=== PATIENT | male | born 1950 | race Caucasian/White ===

== ENCOUNTER 2024-04-17 05:38 | Day surgery (SDC) | payer MEDICARE ==
[2024-04-16 11:41] VITALS: BMI 28.4
[2024-04-17] MEDS ORDERED: SUGAMMADEX SODIUM 200 MG/2 ML VIAL ONE (06:26)
[2024-04-17] MEDS ORDERED: Dexmedetomidine 200 MCG/2 ML VIAL ONE (06:26)
[2024-04-17] MEDS ORDERED: Sevoflurane 250 ML INH ANEST BOTTLE ONE (06:26)
[2024-04-17] MEDS ORDERED: Oxymetazoline HCl 0.05% ( 15 ML ) ONE (06:28)
[2024-04-17] MEDS ORDERED: Chlorhexidine Gluconate 15 ML UDCUP SSP ONE (06:28)
[2024-04-17] MEDS ORDERED: Midazolam HCl 2 mg/2 ml Vial ONE (06:36)
[2024-04-17] MEDS ORDERED: Dexamethasone 20 MG/5 ML VIAL ONE (06:36)
[2024-04-17] MEDS ORDERED: Rocuronium Bromide 10 MG/ML (10ML VIAL) ONE (06:36)
[2024-04-17] MEDS ORDERED: fentaNYL 50 mcg/mL 1 mL Vial ONE ×3 (06:36→09:23)
[2024-04-17] MEDS ORDERED: Ondansetron PF 4 MG/2 ML Vial ONE (06:36)
[2024-04-17] MEDS ORDERED: Lidocaine 1% PF 5 ML VIAL ONE (06:36)
[2024-04-17] MEDS ORDERED: Glycopyrrolate 0.2 MG/ML 5 ML SYRINGE ONE (06:36)
[2024-04-17] MEDS ORDERED: PROPOFOL 20 ML ONE ×2 (06:36→08:23)
[2024-04-17] MEDS ORDERED: Clindamycin/D5W 900 mg/50 ml Premix Bag ONE (06:59)
[2024-04-17] MEDS ORDERED: ePHEDrine Sulfate 50 MG/10 ML VIAL ONE (07:22)
[2024-04-17] MEDS ORDERED: Lidocaine 1% (PF) 30 ML VIAL ONE (07:24)
[2024-04-17] MEDS ORDERED: Albuterol HFA (OR) 200 PUFF INH ONE (08:23)
[2024-04-17] MEDS ORDERED: HYDROcodone/Acetaminophen 5/325 mg Tablet ONE (10:12)
== END 2024-04-17 10:50 | disposition home or self-care (01) ==
LOC: CSHSDC 05:38
PROVIDERS: ATTEND Dentist Oral and Maxillofacial Surgery
PROC: 0CDXXZ1 Extraction of Lower Tooth, Multiple, External Approach (ICD-10-PCS; principal; 2024-04-17)
PROC: 0NBV0ZZ Excision of Left Mandible, Open Approach (ICD-10-PCS; 2024-04-17)
PROC: 0NBT0ZZ Excision of Right Mandible, Open Approach (ICD-10-PCS; 2024-04-17)
DX: K02.9 Dental caries, unspecified (principal); M27.0 Developmental disorders of jaws; Z88.5 Allergy status to narcotic agent
CPT/HCPCS: 21031; 41899; J1100; J2001; J2250; J2405; J2704; J3010; J3490